=== PATIENT | female | born 1950 | race American Indian/Alaskan Native ===

== ENCOUNTER 2020-03-16 15:19 | Observation (INO) | payer OTHER, MEDICARE ==
--- NOTE | 2020-03-16 16:29 | XRay Report ---
CHEST 2 VIEWS INDICATION: MAIN. COMPARISON: None. FINDINGS: Support devices: None. Heart: Within normal limits. Lungs/Pleura: No acute air space or interstitial disease. No significant pleural effusion. IMPRESSION: No acute findings. Signer Name: Mic Coker MD Signed: 03/16/2020 4:24 PM Workstation Name: [id number]
[2020-03-16 16:53] LABS: Basophils % (Auto) 0.5 % (0.0-1.8); Eosinophils # (Auto) 0.1 K/mm3 (0.0-0.4); Eosinophils % (Auto) 1.7 % (0.0-4.3); Hematocrit 40.1 % (30.3-42.9); Hemoglobin 13.1 gm/dl (10.1-14.3); Lymphocytes # (Auto) 2.6 K/mm3 (1.2-5.4); Lymphocytes % (Auto) 36.4 % (13.4-35.0); Mean Corpuscular HGB Conc 33 % (30-34); Mean Corpuscular Volume 86 fl (79-97); Monocytes # (Auto) 0.6 K/mm3 (0.0-0.8); Monocytes % (Auto) 7.6 % (0.0-7.3); Platelet Count 199 K/mm3 (140-440); Red Blood Count 4.67 M/mm3 (3.65-5.03); Red Cell Distribution Width 15.3 % (13.2-15.2)
--- NOTE | 2020-03-16 16:54 | Emergency Department Report ---
Blank Doc - Documentation Documentation: 70-year-old female that presents with left sided chest pain. This initial assessment/diagnostic orders/clinical plan/treatment(s) is/are subject to change based on patient's health status, clinical progression and re- assessment by fellow clinical providers in the ED. Further treatment and workup at subsequent clinical providers discretion. Patient/guardians urged not to elope from the ED as their condition may be serious if not clinically assessed and managed. Initial orders include: 1- Patient sent to [facility] for further evaluation and treatment 2- cardiac work up
[2020-03-16 17:17] LABS: BUN/Creatinine Ratio 21; Blood Urea Nitrogen 15 mg/dL (7-17); Calcium 8.7 mg/dL (8.4-10.2); Hemolysis Index 9
[2020-03-16 19:05] LABS: Partial Thromboplastin Time 30.7 Sec. (24.2-36.6)
[2020-03-16 19:11] LABS: Alanine Aminotransferase 13 units/L (7-56); Albumin 4.3 g/dL (3.9-5)
[2020-03-16 19:12] LABS: Bilirubin,Direct < 0.2 mg/dL (0-0.2)
--- NOTE | 2020-03-16 22:15 | Emergency Department Report ---
ED Chest Pain HPI - General Chief Complaint: Chest Pain Stated Complaint: CP Time Seen by Provider: 03/16/20 16:52 Source: EMS Mode of arrival: Stretcher Limitations: No Limitations - History of Present Illness Initial Comments: Patient is 70 years old female with history of congestive heart failure, hypertension and diabetes. Patient presented to the ER via EMS from home for evaluation of left-sided chest pain. Sudden onset. Patient stated that she was watering ponce outside and when she came back inside her house she started having left-sided chest pain. Patient described her pain as sharp and aching. Patient stated the pain is constant. No radiation. Patient denied any shortness of breath, fever, chills or cough. MD Complaint: chest pain -: Sudden, This afternoon Onset: during exertion Pain Location: left chest Pain Radiation: none Severity: moderate Severity scale (0 -10): 6 Quality: aching, sharp Consistency: constant Treatments Prior to Arrival: aspirin - Related Data Home Medications Medication Instructions Recorded Confirmed Last Taken Amlodipine Besylate [Norvasc] 5 mg PO QDAY 03/16/20 03/16/20 Unknown Glimepiride [Amaryl] 4 mg PO BID 03/16/20 03/16/20 Unknown Metformin HCl [Glucophage] 1,000 mg PO BID 03/16/20 03/16/20 Unknown carvediloL [Coreg] 12.5 mg PO BID 03/16/20 03/16/20 Unknown Allergies Allergy/AdvReac Type Severity Reaction Status Date / Time lisinopril Allergy Angioedema Verified 04/09/15 09:49 penicillin Allergy Hives Verified 04/09/15 09:49 Heart Score - HEART Score History: Moderately suspicious EKG: Non-specific Age: > 65 Risk factors: > 3 risk factors or hx of atherosclerotic disease Troponin: < normal limit HEART Score: 6 - Critical Actions Critical Actions: 4-6 pts:12-16.6% risk of adverse cardiac event. Should be admitted ED Review of Systems ROS: Stated complaint: CP Other details as noted in HPI Comment: All other systems reviewed and negative Constitutional: denies: chills, fever Respiratory: denies: cough, shortness of breath, SOB with exertion, SOB at rest, wheezing Cardiovascular: chest pain. denies: palpitations, dyspnea on exertion, orthopnea Gastrointestinal: denies: abdominal pain, nausea, vomiting Genitourinary: denies: urgency, dysuria, hematuria Musculoskeletal: denies: back pain Neurological: denies: headache, weakness, numbness, paresthesias, confusion, abn ormal gait ED Past Medical Hx - Past Medical History Previous Medical History?: Yes Hx Hypertension: Yes Hx Congestive Heart Failure: Yes Hx Diabetes: Yes - Surgical History Hx Breast Surgery: Yes (reduction) - Social History Smoking Status: Unknown if ever smoked Substance Use Type: None - Medications Home Medications: Home Medications Medication Instructions Recorded Confirmed Last Taken Type Amlodipine Besylate [Norvasc] 5 mg PO QDAY 03/16/20 03/16/20 Unknown History Glimepiride [Amaryl] 4 mg PO BID 03/16/20 03/16/20 Unknown History Metformin HCl [Glucophage] 1,000 mg PO BID 03/16/20 03/16/20 Unknown History carvediloL [Coreg] 12.5 mg PO BID 03/16/20 03/16/20 Unknown History ED Physical Exam - General Limitations: No Limitations General appearance: alert, in no apparent distress - Head Head exam: Present: atraumatic, normocephalic, normal inspection - Eye Eye exam: Present: normal appearance - ENT ENT exam: Present: normal exam, normal orophraynx, mucous membranes moist - Neck Neck exam: Present: normal inspection, full ROM. Absent: tenderness, meningismus, lymphadenopathy, thyromegaly - Respiratory Respiratory exam: Present: normal lung sounds bilaterally - Cardiovascular Cardiovascular Exam: Present: regular rate, normal rhythm, normal heart sounds - GI/Abdominal GI/Abdominal exam: Present: soft, normal bowel sounds. Absent: distended, tenderness, guarding, rebound, rigid, organomegaly, mass, bruit, pulsatile mass, hernia - Extremities Exam Extremities exam: Present: normal inspection, full ROM, normal capillary refill. Absent: pedal edema, calf tenderness - Back Exam Back exam: Present: normal inspection, full ROM. Absent: CVA tenderness (R), CVA tenderness (L), muscle spasm, paraspinal tenderness, vertebral tenderness, rash noted - Neurological Exam Neurological exam: Present: alert, oriented X3, CN II-XII intact, normal gait, reflexes normal. Absent: motor sensory deficit - Psychiatric Psychiatric exam: Present: normal mood - Skin Skin exam: Present: warm, intact, normal color ED Course Vital Signs 03/16/20 03/16/20 15:47 22:10 Temperature 98.7 F 97.6 F Pulse Rate 69 69 Respiratory 20 16 Rate Blood Pressure 130/74 Blood Pressure 131/82 [Right] O2 Sat by Pulse 98 98 Oximetry ED Medical Decision Making - Lab Data Result diagrams: 03/16/20 16:30 03/16/20 16:30 - EKG Data -: EKG Interpreted by Me EKG shows normal: sinus rhythm - Radiology Data Radiology results: report reviewed - Medical Decision Making Patient is 70 years old female with history of congestive heart failure, hypertension and diabetes. Patient presented to the ER via EMS from home for evaluation of left-sided chest pain. Sudden onset. Patient stated that she was watering ponce outside and when she came back inside her house she started having left-sided chest pain. Patient described her pain as sharp and aching. Patient stated the pain is constant. No radiation. Patient denied any shortness of breath, fever, chills or cough. EKG showed no ST elevation, chest x-ray is negative for acute finding labs reviewed and is unremarkable including a negative troponin. CTA chest is negative for PE or any other acute pathology. Patient discussed with he agreed to admit the patient to medical service for further management. Critical care attestation.: If time is entered above; I have spent that time in minutes in the direct care of this critically ill patient, excluding procedure time. ED Disposition Clinical Impression: Chest pain Disposition: OP ADMIT IP TO THIS HOSP Is pt being admited?: Yes Condition: Stable Instructions: Chest Pain (ED)
[2020-03-17 00:31] LABS: Bilirubin,Urine NEG (Negative); Blood,Urine NEG (Negative); Color,Urine Yellow (Yellow); Mucus,Urine FEW /HPF; Protein,Urine <15 mg/dL mg/dL (Negative); Urobilinogen,Urine < 2.0 mg/dL (<2.0)
--- NOTE | 2020-03-17 00:50 | Cat Scan Report ---
CTA CHEST WITH IV CONTRAST INDICATION: Acute onset chest pain with dyspnea. TECHNIQUE: Axial CT images were obtained through the chest after injection of 100 mL IV contrast. 3 plane MIP re constructions were produced. All CT scans at this location are performed using CT dose reduction for ALARA by means of automated exposure control. COMPARISON: None available. FINDINGS: PULMONARY ARTERIES: No pulmonary emboli. AORTA AND ARTERIES: No acute abnormality. MEDIASTINUM: No mass, lymphadenopathy or other significant abnormality. The heart is normal in size w ithout a pericardial effusion. The trachea and main bronchi are patent and normal in caliber. LUNGS: No suspicious consolidation, nodule or mass. No pneumothorax or pleural effusion. ADDITIONAL FINDINGS: None. UPPER ABDOMEN: No acute findings. BONES: No significant osseous abnormality. IMPRESSION: 1. No CT evidence for pulmonary embolism. 2. No acute findings. Signer Name: Billy Lei MD Signed: 03/17/2020 12:46 AM Workstation Name: [id number]
[2020-03-17] MEDS ORDERED: NITROGLYCERIN 0.4 MG TAB SUBL SL PRN (02:58)
[2020-03-17] MEDS ORDERED: DEXTROSE 50% IN WATER (25GM) 50 ML SYRINGE IV PRN (02:58)
[2020-03-17] MEDS ORDERED: MORPHINE 2 MG/1 ML INJ IV PRN (02:58)
[2020-03-17] MEDS ORDERED: ACETAMINOPHEN 325 MG TAB PO PRN (02:58)
[2020-03-17] MEDS ORDERED: ONDANSETRON 4 MG/2 ML INJ IV PRN (02:58)
--- NOTE | 2020-03-17 03:10 | History and Physical Report ---
History of Present Illness Date of examination: 03/17/20 Date of admission: 03/17/2020 Chief complaint: Chest pain History of present illness: Patient is a 70-year-old female with known history of hypertension, diabetes mellitus and congestive heart failure presenting to the emergency room today complaining of left-sided chest pain. Pain was said to have started suddenly when she was watching her ponce in the yard. Pain is said to be sharp, constant and nonradiating. There is no no relieving or exacerbating factor. She denies any fever or chills, no cough or shortness of breath. No headache or dizziness. No nausea vomiting and no abdominal pain. Work-up in the emergency room so far has been unremarkable.. Past History Past Medical History: diabetes, heart failure, hyperlipidemia Past Surgical History: Other (Breast surgery in the past) Social history: no significant social history Family history: no significant family history Medications and Allergies Allergies Allergy/AdvReac Type Severity Reaction Status Date / Time lisinopril Allergy Angioedema Verified 04/09/15 09:49 penicillin Allergy Hives Verified 04/09/15 09:49 Home Medications Medication Instructions Recorded Confirmed Last Taken Type Amlodipine Besylate [Norvasc] 5 mg PO QDAY 03/16/20 03/16/20 Unknown History Glimepiride [Amaryl] 4 mg PO BID 03/16/20 03/16/20 Unknown History Metformin HCl [Glucophage] 1,000 mg PO BID 03/16/20 03/16/20 Unknown History carvediloL [Coreg] 12.5 mg PO BID 03/16/20 03/16/20 Unknown History Review of Systems Constitutional: no fever, no chills Ears, nose, mouth and throat: no nasal congestion, no sore throat Cardiovascular: chest pain, no palpitations Respiratory: no cough, no shortness of breath Gastrointestinal: no abdominal pain, no nausea, no vomiting, no diarrhea Genitourinary Female: no pelvic pain, no flank pain, no dysuria Musculoskeletal: no neck pain, no low back pain Integumentary: no rash, no pruritis Neurological: no headaches, no confusion Psychiatric: no anxiety, no depression Exam - Constitutional Vitals: Temp Pulse Resp BP Pulse Ox 97.6 F 90 18 162/99 98 03/16/20 22:10 03/17/20 00:56 03/17/20 00:56 03/17/20 00:56 03/17/20 00:56 General appearance: Present: no acute distress, well-nourished - EENT Eyes: Present: PERRL, EOM intact. Absent: scleral icterus ENT: hearing intact, clear oral mucosa, dentition normal - Neck Neck: Present: supple, normal ROM - Respiratory Respiratory effort: normal Respiratory: bilateral: CTA - Cardiovascular Rhythm: regular Heart Sounds: Present: S1 & S2. Absent: gallop, systolic murmur, diastolic murmur, rub - Extremities Extremities: no ischemia, pulses intact, pulses symmetrical, No edema, Full ROM Peripheral Pulses: within normal limits - Abdominal General gastrointestinal: Present: soft, non-tender, non-distended, normal bowel sounds. Absent: mass - Integumentary Integumentary: Present: clear, warm, dry, rash - Musculoskeletal Musculoskeletal: strength equal bilaterally - Psychiatric Psychiatric: appropriate mood/affect, intact judgment & insight, memory intact, cooperative - Neurologic Neurologic: CNII-XII intact, no focal deficits, moves all extremities HEART Score - HEART Score EKG: Non-specific Age: > 65 Risk factors: > 3 risk factors or hx of atherosclerotic disease Troponin: Troponin T < 0.010 ng/mL (0.00-0.029) 03/16/20 20:18 Troponin: < normal limit - Critical Actions Critical Actions: 4-6 pts:12-16.6% risk of adverse cardiac event. Should be admitted Results - Labs CBC & Chem 7: 03/17/20 03:18 03/17/20 03:18 Labs: Abnormal lab results 03/16/20 03/17/20 Range/Units 16:30 00:50 RDW 15.3 H (13.2-15.2) % Lymph % (Auto) 36.4 H (13.4-35.0) % [place]pine % (Auto) 7.6 H (0.0-7.3) % POC Glucose 67 L (70-105) Assessment and Plan - Patient Problems (1) Chest pain Current Visit: Yes Status: Acute Plan to address problem: Patient admitted and placed on telemetry. We will monitor serial cardiac enzymes. Patient replaced on aspirin, sublingual nitroglycerin and IV morphine as needed for chest pain. We will request cardiology evaluation and recommendation. (2) Diabetes mellitus Current Visit: Yes Status: Acute Plan to address problem: We will monitor Accu-Cheks. (3) DVT prophylaxis Current Visit: Yes Status: Acute Plan to address problem: Patient placed on subcutaneous heparin. (4) Full code status Current Visit: Yes Status: Acute
[2020-03-17 04:00] LABS: Basophils % (Auto) 0.3 % (0.0-1.8); Eosinophils # (Auto) 0.1 K/mm3 (0.0-0.4); Eosinophils % (Auto) 1.8 % (0.0-4.3); Hematocrit 40.5 % (30.3-42.9); Hemoglobin 13.2 gm/dl (10.1-14.3); Lymphocytes # (Auto) 2.5 K/mm3 (1.2-5.4); Mean Corpuscular HGB Conc 33 % (30-34); Mean Corpuscular Volume 87 fl (79-97); Monocytes # (Auto) 0.6 K/mm3 (0.0-0.8); Monocytes % (Auto) 8.7 % (0.0-7.3); Platelet Count 179 K/mm3 (140-440); Red Blood Count 4.68 M/mm3 (3.65-5.03); Red Cell Distribution Width 15.1 % (13.2-15.2)
[2020-03-17 04:08] LABS: BUN/Creatinine Ratio 18; Blood Urea Nitrogen 11 mg/dL (7-17); Hemolysis Index 6
[2020-03-17 04:14] LABS: Chol/HDL Ratio 4.13 %
[2020-03-17] MEDS: INSULIN LISPRO 100 UNIT/ML SUB-Q SCH ×3 (08:39→17:50)
[2020-03-17] MEDS ORDERED: REGADENOSON 0.4 MG/5 ML INJ IV ONE ×2 (09:00→09:17)
[2020-03-17] MEDS ORDERED: carvediloL 12.5 MG TAB PO SCH (10:00)
[2020-03-17] MEDS ORDERED: amLODIPine 5 MG TAB PO SCH (10:00)
--- NOTE | 2020-03-17 10:55 | Event Note ---
Date: 03/17/20 Detailed cardiology consultation dictated. S/p lexiscan MPI stress test today which was negative. Currently stable cardiac status. Await echo. Pending echo does not show any significant abnormalities, pt may discharge from cardiology standpoint. Recommend pt follow up in our office with Dr. Lory Lomeli within 2 weeks ([phone]). Iron SMITH NP / DR. Lory LOMELI
--- NOTE | 2020-03-17 11:19 | Consultation ---
REFERRING PHYSICIAN: Hospitalist service. REASON FOR ADMISSION: Chest pain. HISTORY OF PRESENT ILLNESS: The patient is an exceedingly pleasant 70-year-old -[place] female with a history of hypertension, diabetes and congestive heart failure, presents to the hospital yesterday having sharp left-sided chest pain. She was apparently working on the ponce in her yard and developed a sharp pain. This is nonradiating. She sees [facility]. 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 She is a nonsmoker, nondrinker. ALLERGIES: ALLERGIC TO FRANCIS AND PENICILLIN. HOME MEDICATIONS: Inpatient and outpatient medications reviewed. No dyspnea. No abdominal pain, syncope or presyncope. No rashes, bleeding diathesis, hematochezia or melena. Does have a history of breast surgery in the past. REVIEW OF SYSTEMS: As per HPI. PHYSICAL EXAMINATION: VITAL SIGNS: Blood pressure is 140/70. She is afebrile. Tele reveals sinus rhythm in the 60s, O2 sats 100% on room air. GENERAL: This is a middle-aged -[place] female, in no apparent distress, oriented x 3. HEENT: Sclerae are anicteric. PERRLA. NECK: Supple, no masses, no JVD. CHEST: Clear to auscultation bilaterally. Good air movement. CARDIOVASCULAR: Regular rhythm, S1, S2. ABDOMEN: Soft, nontender, nondistended. Normoactive bowel sounds in 4 quadrants. No mass or bruits. EXTREMITIES: No cyanosis, clubbing, edema. Good peripheral pulses. SKIN: Intact. No rashes. LABORATORY DATA: Cardiac enzymes are negative x 3. CBC and BMP are unremarkable. Total cholesterol is 149, LDL 100, HDL 36, triglycerides are 129. EKG is within normal limits. Chest CTA was done yesterday negative for PE or any other significant abnormalities. ASSESSMENT AND PLAN: The patient is a pleasant 70-year-old -[place] female: 1. Chest pain, mostly atypical features. EKG is unremarkable. Cardiac enzymes negative x 3. Stress test and echocardiogram are pending. 2. History of congestive heart failure of unclear etiology. She seems to be euvolemic at this point. 3. Diabetes. 4. Hypertension. 5. Obesity. At this point, continue current workup. Follow up on cardiac testing. The patient is clinically stable. Thank you for this consultation. I will be happy to follow along with you. JOB# [id number] SBM/NTS
--- NOTE | 2020-03-17 12:58 | Treadmill Report ---
NUCLEAR PERFUSION SCAN REFERRING PHYSICIAN: Hospitalist service. PROTOCOL: The patient was brought to the stress lab in postoperative state, given 10 mCi of technetium 99m at rest. The patient underwent rest imaging. The patient underwent Lexiscan stress test per standard protocol. At peak stress, the patient was given 26 mCi of technetium 99m. Shortly thereafter, the patient underwent stress imaging. Technically difficult study. Raw imaging reveals subdiaphragmatic activity as well as breast attenuation, but grossly no evidence of a significant fixed or reversible perfusion defects suggestive of prior infarction or ischemia. Gated wall motion reveals normal systolic thickening, calculated ejection fraction of 66%. No TID. CONCLUSIONS: 1. Technically difficult study due to subdiaphragmatic activity and breast attenuation, but grossly probably normal study without evidence of active ischemia or prior infarction. 2. Normal left ventricular systolic performance without evidence of transient ischemic dilatation or stress-induced segmental wall motion abnormalities. JOB# [id number] SBJessica/NELLIE
[2020-03-17] MEDS ORDERED: amLODIPine 5 MG TAB ONE (13:06)
--- NOTE | 2020-03-17 13:40 | Short Stay Summary ---
Short Stay Documentation Date of service: 03/17/20 Narrative H&P: Patient is a 70-year-old female with known history of hypertension, diabetes mellitus and congestive heart failure presenting to the emergency room today complaining of left-sided chest pain. Pain was said to have started suddenly when she was watching her ponce in the yard. Pain was said to be sharp, constant and nonradiating. There was no no relieving or exacerbating factors. Cardiology saw the patient in consultation and recommended stress test which was found to be negative. Echocardiogram was also completed that did not show any significant abnormalities. Etiology of chest pain likely secondary to GERD. Patient will be discharged home and Recommend pt follow up in our office with Dr. Lory Christie within 2 weeks ([phone]). Dedicated discharge time 35 minutes. - History Past Medical History: diabetes, heart failure, hyperlipidemia Past Surgical History: Other (Breast surgery in the past) Social history: no significant social history - Allergies and Medications Current Medications: Allergies lisinopril Allergy (Verified 04/09/15 09:49) Angioedema penicillin Allergy (Verified 04/09/15 09:49) Hives Home Medications Medication Instructions Recorded Confirmed Last Taken Type Amlodipine Besylate [Norvasc] 5 mg PO QDAY 03/16/20 03/16/20 Unknown History Glimepiride [Amaryl] 4 mg PO BID 03/16/20 03/16/20 Unknown History Metformin HCl [Glucophage] 1,000 mg PO BID 03/16/20 03/16/20 Unknown History carvediloL [Coreg] 12.5 mg PO BID 03/16/20 03/16/20 Unknown History Active Medications Acetaminophen (Tylenol) 650 mg PO Q4H PRN PRN Reason: Pain MILD(1-3)/Fever >100.5/BERRIOS Amlodipine Besylate (Amlodipine) 5 mg PO QDAY [facility] Last Admin: 03/17/20 13:12 Dose: 5 mg Documented by: Aspirin (Ecotrin) 325 mg PO QDAY [facility] Carvedilol (Coreg) 12.5 mg PO BID [facility] Dextrose (D50w (25gm) Syringe) 50 ml IV Q30MIN PRN; Protocol PRN Reason: Hypoglycemia Heparin Sodium (Porcine) (Heparin) 5,000 unit SUB-Q Q8HR EMILIO Insulin Human Lispro (Humalog) 0 unit SUB-Q ACHS [facility]; Protocol Last Admin: 03/17/20 08:39 Dose: Not Given Documented by: Morphine Sulfate (Morphine) 2 mg IV Q5MIN PRN PRN Reason: Chest Pain unrelieved by NTG Nitroglycerin (Nitrostat) 0.4 mg SL Q5M PRN PRN Reason: Chest Pain Ondansetron HCl (Zofran) 4 mg IV Q8H PRN PRN Reason: Nausea And Vomiting Sodium Chloride (Sodium Chloride Flush Syringe 10 Ml) 10 ml IV PRN PRN PRN Reason: LINE FLUSH Sodium Chloride (Sodium Chloride Flush Syringe 10 Ml) 10 ml IV BID EMILIO - Physical exam General appearance: no acute distress Integumentary: no rash Breasts: normal Heart: Normal S1, Normal S2 Gastrointestinal: normal, normoactive bowel sounds Extremities: no ischemia, pulses intact, pulses symmetrical, No edema, Full ROM - Disposition Condition at discharge: Stable Disposition: DC-01 TO HOME OR SELFCARE - Discharge Diagnoses (1) GERD (gastroesophageal reflux disease) Status: Acute (2) Chest pain Status: Acute (3) Diabetes mellitus Status: Acute Short Stay Discharge Plan Activity: advance as tolerated Weight Bearing Status: Weight Bear as Tolerated Diet: diabetic Follow up with: DEISY WATSON MD [Primary Care Provider] - 3-5 Days WENDY CHRISTIE MD [Staff Physician] - 7 Days
[2020-03-17] MEDS ORDERED: HEPARIN 5,000 UNIT/1 ML VIAL SUB-Q SCH (14:00)
[2020-03-17] MEDS ORDERED: HEPARIN 5,000 UNIT/1 ML VIAL ONE (15:24)
[2020-03-17 16:32] VITALS: BP 126/70
[2020-03-18] MEDS ORDERED: ASPIRIN EC 325 MG TAB PO SCH (10:00)
== END 2020-03-17 19:17 | disposition home or self-care (01) ==
LOC: ED 15:19 → INTOOBSV 03-17 01:32 → 4A 03-17 01:32
PROVIDERS: ADMIT Internal Medicine Geriatric Medicine; ATTEND Hospitalist
DX: R07.89 Other chest pain (principal); E11.9 Type 2 diabetes mellitus without complications; I11.0 Hypertensive heart disease with heart failure; I50.9 Heart failure, unspecified; E66.9 Obesity, unspecified; E78.5 Hyperlipidemia, unspecified; K21.9 Gastro-esophageal reflux disease without esophagitis; Z98.890 Other specified postprocedural states; Z79.84 Long term (current) use of oral hypoglycemic drugs; Z68.43 Body mass index [BMI] 50.0-59.9, adult
CPT/HCPCS: 36415; 71046; 71275; 78452; 80048; 80061; 80076; 81001; 82962; 83880; 84484; 85025; 85610; 85730; 93005; 93017; 93306; 96372; 99285; A9502; G0378; J1644; J2785; Q9967

== ENCOUNTER 2020-09-04 11:39 | Outpatient (CLI) | payer OTHER, MEDICARE ==
--- NOTE | 2020-09-04 12:41 | Mammography Report ---
DIGITAL SCREENING MAMMOGRAM WITH CAD, 09/04/2020 CLINICAL INFORMATION / INDICATION: Routine screening mammography. TECHNIQUE: Digital bilateral 2D mammography was obtained in the craniocaudal and mediolateral obliqu e projections. This examination was interpreted with the benefit of Computer-Aided Detection analysis . COMPARISON: 06/18/2018 FINDINGS: Breast Density: There are scattered areas of fibroglandular density. No dominant mass, suspicious calcifications, or architectural distortion in either breast. Postreduction mammoplasty scarring again noted. Biopsy clip present in the superior anterior right br east. IMPRESSION: No mammographic evidence of malignancy. Follow up recommendation: Routine yearly BI-RADS Category 2: Benign. A "normal" or negative report should not discourage follow up or biopsy of a clinically significant f inding. A written summary of these findings will be mailed to the patient. The patient will be entered into a mammography reporting system which will generate a reminder letter for the patient's next appointmen t at the appropriate interval. The [employer] recommends yearly mammograms starting at age 40 and continuing as l angelique as a woman is in good health. Breast MRI is recommended for women with an approximate 20-25% or greater lifetime risk of breast cancer, including women with a strong family history of breast or ova lucio cancer or who have been treated for Hodgkin's disease. Signer Name: Belem Agosto MD Signed: 09/04/2020 12:36 PM Workstation Name: [id number]
== END 2020-09-04 11:40 | disposition home or self-care (01) ==
LOC: SPVWC 11:39
PROVIDERS: ATTEND Surgery
DX: Z12.31 Encounter for screening mammogram for malignant neoplasm of breast (principal); N64.89 Other specified disorders of breast
CPT/HCPCS: 77067